=== PATIENT | male | born 1995 | race Caucasian/White ===

== ENCOUNTER 2020-10-28 09:10 | Emergency (ER) | payer MEDICAID, OTHER ==
[~2020-10-28] VITALS: Ht 180.3 cm; Wt 80.0 kg
--- NOTE | 2020-10-28 09:28 | NUR ---
PT. ARRIVES BY [facility] WITH C/O VOMITING BLOOD AND HAVING BLOODY STOOLS. PT. REPORTS THAT IT IS A CHRONIC PROBLEM. HE ALSO STATES HE HAS A HX OF TB A FEW YEARS THAT HE DIDN'T RECEIVE TREATMENT FOR. REPORT HANDED OFF TO THE PRIMARY RN.
--- NOTE | 2020-10-28 09:35 | NUR ---
REVIEW OF CHART, ASSUME CARE OF PT AT THIS TIME. PT SLEEPING AT THIS TIME. AWAITING ERP ORDERS.
[2020-10-28] MEDS ORDERED: PANTOPRAZOLE 40 MG IV ONE (09:50)
--- NOTE | 2020-10-28 09:59 | NUR ---
PT AWAKE, STATING NAUSEA AND EPIGASTRIC/PERIUMBILICAL PAIN. PT REPORTS OF PROBLEMS WITH ETOH ABUSE AND HEROIN BUT STATES HE HASN'T USED HEROIN "IN AWHILE". PT CONCERNED WITH BACKPACK AND SLEEPING BAG HE BELIEVES WAS LEFT IN AMBULANCE OR AT "777" WHERE HE WAS PICKED UP. PT HAS TWO BAGS, CLOTHING AND "SERVICE DOG" WITH HIM. JEB RN TO ATTEMPT CALL TO MEDIC TO INQUIRE ON BACKPACK.
[2020-10-28] MEDS ORDERED: PANTOPRAZOLE 20MG TABLET PO ONE (10:00)
[2020-10-28 10:14] LABS: CHLORIDE 101 mmol/L (98-107)
--- NOTE | 2020-10-28 10:16 | NUR ---
CALL TO [facility] TO INQUIRE ON BACKPACK. SECURITY ASSIST TO TAKE DOG TO [facility].
[2020-10-28] MEDS ORDERED: PROMETHAZINE 25 MG/ML, 1ML ONE (10:23)
[2020-10-28] MEDS ORDERED: PROMETHAZINE 25 MG/ML, 1ML IM ONE (10:30)
[2020-10-28 10:31] LABS: BASOPHILS % (AUTO) 1 % (0-1); EOSINOPHILS % (AUTO) 0 % (1-7); LYMPHOCYTES % (AUTO) 50 % (22-44); MEAN CORPUSCULAR HEMOGLOBIN 34.7 pg (27.5-34.5); MEAN CORPUSCULAR HGB CONC 35.3 g/dL (33.2-36.2); MEAN PLATELET VOLUME 8.8 fL (7.4-10.4); MONOCYTES % (AUTO) 4 % (2-9); NEUTROPHILS % (AUTO) 45 % (42-75); PLATELET COUNT 228 x10^3/uL (130-400); RED BLOOD COUNT 3.61 x10^6/uL (4.38-5.82)
[2020-10-28 10:34] LABS: MD SCAN
[2020-10-28 11:19] LABS: ANION GAP 6 mmol/L (5-15); CALCIUM 7.5 mg/dL (8.5-10.1)
[2020-10-28 11:20] LABS: ALANINE AMINOTRANSFERASE 218 U/L (12-78); ALBUMIN 2.9 g/dL (3.4-5.0); ALKALINE PHOSPHATASE 119 U/L (45-117); BILIRUBIN,TOTAL 0.5 mg/dL (0.2-1.0); CREATININE 0.68 mg/dL (0.7-1.3)
[2020-10-28 11:26] LABS: TOTAL PROTEIN 6.2 g/dL (6.4-8.2)
--- NOTE | 2020-10-28 11:29 | NUR ---
ALL RESULTS BACK, PT FOR RECHECK. VSS/UPDATED IN COMPUTER. PT SLEEPING/NAD.
--- NOTE | 2020-10-28 11:50 | NUR ---
ATTEMPT TO GIVE PT DC INSTRUCTS. PT SLEEPING SOUNDLY, DIFFICULT TO AROUSE, REFUSING TO WAKE AND ATTEMPT AMBULATION. VSS. IV D/C'D, MONITORING DEVICES REMOVED. WILL CONTINUE TO MONITOR UNTIL PT SAFE TO DISCHARGE. MATERIALS HANDLING COORDINATOR NOTIFIED.
--- NOTE | 2020-10-28 13:00 | NUR ---
PT AROUSABLE, ABLE TO BOYER. REFUSING TO GET OOB. PT INFORMED HE NEEDS TO GET DRESSED AND IS DISCHARGED FROM ED. PT ASKING TO STAY LONGER "TO SLEEP IT OFF". UNABLE TO ASSESS AMBULATION AT THIS TIME.
--- NOTE | 2020-10-28 14:16 | NUR ---
PT GIVEN MANY OPPORTUNITIES TO GET DRESSED AND BE DISCHARGED FROM ED. PT PROVIDED ALL INFORMATION AND RESOURCES FOR F/U WITH DRUG/ETOH TREATMENT. CLOTHING PROVIDED FROM [facility] D/T SOME OF PT'S CLOTHING BEING WET. PT CONTINUES TO ASK TO SLEEP LONGER, STAY IN ER AND REFUSES TO GET DRESSED. CALL TO SECURITY TO ASSIST PT IN LEAVING ER.
[2020-10-28 14:32] VITALS: BP 136/75
== END 2020-10-28 14:34 | disposition home or self-care (01) ==
LOC: ED 09:32
DX: K29.21 Alcoholic gastritis with bleeding (principal); R11.2 Nausea with vomiting, unspecified
CPT/HCPCS: 36415; 80053; 80320; 83690; 85025; 96372; 99283; J2550; G0480